=== PATIENT | female | born 1945 | race Caucasian/White ===

== ENCOUNTER 2016-10-21 19:40 | Emergency (ER) | payer OTHER ==
--- NOTE | 2016-10-21 22:39 | DIAGNOSTIC IMAGING REPORT ---
PROCEDURE: CT ABDOMEN/PELVIS W/O CONTRAST INDICATION: Left flank pain and hematuria. Status post cholecystectomy, hysterectomy, appendectomy. TECHNIQUE: Noncontrast axial images with sagittal and coronal reformations. COMPARISON: None. FINDINGS: ABDOMEN: There is a 4 mm nonobstructing calculus in the lower pole left kidney. Left and ureter are otherwise normal. There is a 1 mm nonobstructing calculus in the mid right kidney. No evidence of urinary tract obstruction. Cholecystectomy (surgical clips). Liver, spleen, and pancreas are normal. Bowel pattern is normal, including appendix. There are marked calcified atheromatous changes of the aorta and mesenteric vessels. There are moderate degenerate change of the lumbar spine. PELVIS: Moderate stool throughout the colon. Moderate sigmoid diverticulosis, but no evidence of diverticulitis. Status post hysterectomy. No evidence of free fluid. IMPRESSION: 1. There is a 4 mm nonobstructing calculus in the lower pole left kidney. 2. There is a 1 mm nonobstructing calculus in the right kidney. 3. No evidence of urinary tract obstruction. 4. Status post cholecystectomy, and hysterectomy. 5. Moderate sigmoid diverticulosis, but no evidence of diverticulitis. 6. Moderate stool throughout the colon. Consider obstipation. 7. Findings discussed with ROSAURA Espinal. All CT scans at this facility use dose modulation, iterative reconstruction, and/or weight-based dosing when appropriate to reduce radiation dose to as low as reasonably achievable.
--- NOTE | 2016-10-21 22:42 | ED CLINICAL REPORT ---
Clinical Report - Physicians/Mid Levels [facility] [address] [place] [address] 10/21/2016 19:41 Patient: VAN SAMANIEGO Arrived- By private vehicle. Historian- patient. HISTORY OF PRESENT ILLNESS Chief Complaint: FLANK PAIN. 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 It is described as "pain" and it is described as located in the left flank. No nausea, loss of appetite or vomiting. (patient presents with intermittent left flank pain over the last 10 days. Distant history of nephrolithiasis. Denies any nausea or vomiting. Denies sick contacts. Denies recent foreign travel. Denies trauma to the area. Denies history of diverticulitis. Denies urgency frequency. He denies any shortness of breath or chest pain.). REVIEW OF SYSTEMS No constipation, difficulty with urination, pain with urination, fever or chest pain. All systems otherwise negative, except as recorded above. PAST HISTORY Problems: Neurological Disease. Syncope. UTI - Urinary Tract Infection. Immunizations. LNMP - Last Normal Menstrual Period. Hypercholesterolemia. Insomnia. Multiple Sclerosis. Fall. Contusion. Abrasion(s). Head Injury. Diabetes Mellitus. Hypertension. Tetanus Status. Additional Surgeries: Cholecystectomy. Hysterectomy. Medications: MetFORMIN HCl Oral 500 mg, daily. Enablex Oral 7.5. Metoprolol Tartrate Oral 25 mg. AmLODIPine Besylate Oral 5 mg, daily. C45-Neywsw Oral 1000mcg, daily. Baclofen 10mg, BID . Calcium. Cranberry Oral. Losartan Potassium Oral 100 mg, daily. Simvastatin Oral (Tablet 10 mg) 1 tablet, at bedtime. Tecfidura 240 mg BID. Vitamin D3 Oral (Tablet 5000 unit), daily. Allergies: Niacin and Related. PCN. Sulfa Drugs. SOCIAL HISTORY Never smoker. ADDITIONAL NOTES The nursing notes have been reviewed. PHYSICAL EXAM Vital Signs: 10/21/2016 20:10 BP: 171/64. HR: 67. RR: 18. O2 saturation: 100%. Temp: 98.7 F. Pain level now: 7/10. Appearance: Alert. No acute distress. ENT: Ears normal. Neck: Normal inspection. CVS: Normal heart rate and rhythm. Heart sounds normal. Respiratory: No respiratory distress. Breath sounds normal. Chest nontender. No accessory muscle use. Abdomen: Soft and nontender. No abdominal tenderness, mass present or organomegaly. The bowel sounds are not abnormal. Back: Normal inspection. No CVA tenderness. Neuro: Oriented X 3. No motor deficit. LABS, X-RAYS, AND EKG Abdominal CT: IMPRESSION: 1. There is a 4 mm nonobstructing calculus in the lower pole left kidney. 2. There is a 1 mm nonobstructing calculus in the right kidney. 3. No evidence of urinary tract obstruction. 4. Status post cholecystectomy, and hysterectomy. 5. Moderate sigmoid diverticulosis, but no evidence of diverticulitis. 6. Moderate stool throughout the colon. Consider obstipation. 7. Findings discussed with ROSAURA Espinal. All CT scans at this facility use dose modulation, iterative reconstruction, and/or weight-based dosing when appropriate to reduce radiation dose to as low as reasonably achievable. Electronically Final signed by:Paul Braxton MD 10/21/2016 10:36:58 PM. Laboratory Tests: UA-Culture if indicated: (VIN: 10/21/2016 20:20) ( MsgRcvd 10/21/2016 20:33) Final results Test Result Flag Units (Reference) URINE COLOR YELLOW URINE APPEARANCE CLEAR URINE GLUCOSE NEGATIVE (NEGATIVE) URINE BILIRUBIN NEGATIVE (NEGATIVE) URINE KETONE NEGATIVE (NEGATIVE) URINE SPECIFIC GRAVITY 1.015 (1.010-1.030) URINE PH 6.0 (5.0-8.0) URINE PROTEIN TRACE (NEGATIVE) URINE UROBILINOGEN 0.2 EU/dL (0.2-1.0) URINE NITRITE NEGATIVE (NEGATIVE) URINE BLOOD TRACE-LYSED (NEGATIVE) URINE LEUK ESTERASE NEGATIVE (NEGATIVE) URINE RBC 1-3 rbc/hpf (0-1) URINE WBC 0-1 wbc/hpf (0-1) URINE EPITHELIAL CELLS 1-3 EPI/hpf (0-5) URINE BACTERIA TRACE (<1+) (NONE SEEN) URINE COMMENT CULT NOT INDICATED URINE CULTURES ARE SET-UP BASED ON THE FOLLOWING CRITERIA:POSITIVE NITRITEPOSITIVE LEUKOCYTE ESTERASEGREATER THAN 10 WHITE BLOOD CELLSMODERATE (2+) OR GREATER BACTERIA CBC w Diff: (VIN: 10/21/2016 20:45) ( MsgRcvd 10/21/2016 20:54) Final results Test Result Flag Units (Reference) WHITE BLOOD COUNT 9.6 K/uL (4.5-11.5) RED BLOOD COUNT 3.97 L M/uL (4.00-5.20) HEMOGLOBIN 12.3 gm/dL (12.0-16.0) HEMATOCRIT 36.4 % (36.0-46.0) MEAN CELL VOLUME 92 fL (80-100) MEAN CORPUSCULAR HGB 31 pg (26-34) MEAN CORPUSCULAR HGB CONC 34 g/dL (31-37) RED CELL DISTRIBUTION WIDTH 13.1 % (11.6-14.8) PLATELET COUNT 289 K/uL (150-400) NEUTROPHIL % 76.9 H % (50-75) LYMPH % 12.4 L % (25-40) MONO % 8.7 % (3-14) EOSINOPHIL % 1.8 % (0-4) BASOPHIL % 0.2 % (0-2) CMP: (VIN: 10/21/2016 20:45) ( MsgRcvd 10/21/2016 21:06) Final results Test Result Flag Units (Reference) GLUCOSE 126 H mg/dL (70-110) BUN 16 mg/dL (7-18) CREATININE 0.6 mg/dL (0.6-1.3) Estimated GFR >60 mL/min Estimated GFR- >60 mL/min Note: Persistent reduction over 3 months in eGFR<60 mL/min/1.73 m2 defines CKD. Patients with eGFR values>=60 mL/min/1.73 m2 may also have CKD if evidence ofpersistent proteinuria. Additional information may be foundat www.kidney.org. SODIUM 138 mmol/L (136-145) POTASSIUM 4.0 mmol/L (3.5-5.1) CHLORIDE 101 mmol/L (98-107) CARBON DIOXIDE 28 mmol/L (21-32) CALCIUM 9.7 mg/dL (8.5-10.1) TOTAL PROTEIN 7.6 g/dL (6.4-8.2) ALBUMIN 3.8 g/dL (3.3-5.0) BILIRUBIN, TOTAL 0.3 mg/dL (0.0-1.0) ALKALINE PHOSPHATASE 94 U/L (46-116) AST (SGOT) 16 U/L (15-37) ALT (SGPT) 29 U/L (12-78) Lipase: (VIN: 10/21/2016 20:45) ( MsgRcvd 10/21/2016 21:03) Final results Test Result Flag Units (Reference) LIPASE 142 U/L (73-393) . PROGRESS AND PROCEDURES Course of Care: During the time in the ED, the following DDX were considered: acute surgical abdomen, hemodynamic or metabolic instability, dehydration, gastroenteritis-viral, food borne, or bacterial, food intolerance, irritable or inflammatory bowel, infection, sepsis. patient is largely pain-free in the ER. No distress, afebrile. No signs of infectious process. Patient with signs of small nephrolithiasis, nonobstructing, with no acute complications. He did call for neurology outpatient. 10/21/2016 20:10 BP: 171/64. HR: 67. RR: 18. O2 saturation: 100%. Temp: 98.7 F. Pain level now: 7/10. Patient is stable. Symptoms better. Patient/family counseled. Disposition: Discharged. CLINICAL IMPRESSION Left nephrolithiasis with renal colic. Diabetes. Hypertension. INSTRUCTIONS Drink plenty of fluids. (Urology: [phone]). Prescription Medications: Hydrocodone/APAP 5mg / 325mg: take 1 orally every 6 hours as needed for pain. Dispense twelve (12). No refill. Follow-up: Follow up with your doctor in three days. (Electronically signed by Yamilet Biswas P.A.-C 10/21/2016 22:52)
--- NOTE | 2016-10-21 22:42 | ED CLINICAL REPORT ---
Clinical Report - Physicians/Mid Levels [facility] [address] [place] [address] 10/21/2016 19:41 Patient: VAN SAMANIEGO Arrived- By private vehicle. Historian- patient. HISTORY OF PRESENT ILLNESS Chief Complaint: FLANK PAIN. 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 It is described as "pain" and it is described as located in the left flank. No nausea, loss of appetite or vomiting. (patient presents with intermittent left flank pain over the last 10 days. Distant history of nephrolithiasis. Denies any nausea or vomiting. Denies sick contacts. Denies recent foreign travel. Denies trauma to the area. Denies history of diverticulitis. Denies urgency frequency. He denies any shortness of breath or chest pain.). REVIEW OF SYSTEMS No constipation, difficulty with urination, pain with urination, fever or chest pain. All systems otherwise negative, except as recorded above. PAST HISTORY Problems: Neurological Disease. Syncope. UTI - Urinary Tract Infection. Immunizations. LNMP - Last Normal Menstrual Period. Hypercholesterolemia. Insomnia. Multiple Sclerosis. Fall. Contusion. Abrasion(s). Head Injury. Diabetes Mellitus. Hypertension. Tetanus Status. Additional Surgeries: Cholecystectomy. Hysterectomy. Medications: MetFORMIN HCl Oral 500 mg, daily. Enablex Oral 7.5. Metoprolol Tartrate Oral 25 mg. AmLODIPine Besylate Oral 5 mg, daily. K22-Hheiap Oral 1000mcg, daily. Baclofen 10mg, BID . Calcium. Cranberry Oral. Losartan Potassium Oral 100 mg, daily. Simvastatin Oral (Tablet 10 mg) 1 tablet, at bedtime. Tecfidura 240 mg BID. Vitamin D3 Oral (Tablet 5000 unit), daily. Allergies: Niacin and Related. PCN. Sulfa Drugs. SOCIAL HISTORY Never smoker. ADDITIONAL NOTES The nursing notes have been reviewed. PHYSICAL EXAM Vital Signs: 10/21/2016 20:10 BP: 171/64. HR: 67. RR: 18. O2 saturation: 100%. Temp: 98.7 F. Pain level now: 7/10. Appearance: Alert. No acute distress. ENT: Ears normal. Neck: Normal inspection. CVS: Normal heart rate and rhythm. Heart sounds normal. Respiratory: No respiratory distress. Breath sounds normal. Chest nontender. No accessory muscle use. Abdomen: Soft and nontender. No abdominal tenderness, mass present or organomegaly. The bowel sounds are not abnormal. Back: Normal inspection. No CVA tenderness. Neuro: Oriented X 3. No motor deficit. LABS, X-RAYS, AND EKG Abdominal CT: IMPRESSION: 1. There is a 4 mm nonobstructing calculus in the lower pole left kidney. 2. There is a 1 mm nonobstructing calculus in the right kidney. 3. No evidence of urinary tract obstruction. 4. Status post cholecystectomy, and hysterectomy. 5. Moderate sigmoid diverticulosis, but no evidence of diverticulitis. 6. Moderate stool throughout the colon. Consider obstipation. 7. Findings discussed with ROSAURA Espinal. All CT scans at this facility use dose modulation, iterative reconstruction, and/or weight-based dosing when appropriate to reduce radiation dose to as low as reasonably achievable. Electronically Final signed by:Paul Braxton MD 10/21/2016 10:36:58 PM. Laboratory Tests: UA-Culture if indicated: (VIN: 10/21/2016 20:20) ( MsgRcvd 10/21/2016 20:33) Final results Test Result Flag Units (Reference) URINE COLOR YELLOW URINE APPEARANCE CLEAR URINE GLUCOSE NEGATIVE (NEGATIVE) URINE BILIRUBIN NEGATIVE (NEGATIVE) URINE KETONE NEGATIVE (NEGATIVE) URINE SPECIFIC GRAVITY 1.015 (1.010-1.030) URINE PH 6.0 (5.0-8.0) URINE PROTEIN TRACE (NEGATIVE) URINE UROBILINOGEN 0.2 EU/dL (0.2-1.0) URINE NITRITE NEGATIVE (NEGATIVE) URINE BLOOD TRACE-LYSED (NEGATIVE) URINE LEUK ESTERASE NEGATIVE (NEGATIVE) URINE RBC 1-3 rbc/hpf (0-1) URINE WBC 0-1 wbc/hpf (0-1) URINE EPITHELIAL CELLS 1-3 EPI/hpf (0-5) URINE BACTERIA TRACE (<1+) (NONE SEEN) URINE COMMENT CULT NOT INDICATED URINE CULTURES ARE SET-UP BASED ON THE FOLLOWING CRITERIA:POSITIVE NITRITEPOSITIVE LEUKOCYTE ESTERASEGREATER THAN 10 WHITE BLOOD CELLSMODERATE (2+) OR GREATER BACTERIA CBC w Diff: (VIN: 10/21/2016 20:45) ( MsgRcvd 10/21/2016 20:54) Final results Test Result Flag Units (Reference) WHITE BLOOD COUNT 9.6 K/uL (4.5-11.5) RED BLOOD COUNT 3.97 L M/uL (4.00-5.20) HEMOGLOBIN 12.3 gm/dL (12.0-16.0) HEMATOCRIT 36.4 % (36.0-46.0) MEAN CELL VOLUME 92 fL (80-100) MEAN CORPUSCULAR HGB 31 pg (26-34) MEAN CORPUSCULAR HGB CONC 34 g/dL (31-37) RED CELL DISTRIBUTION WIDTH 13.1 % (11.6-14.8) PLATELET COUNT 289 K/uL (150-400) NEUTROPHIL % 76.9 H % (50-75) LYMPH % 12.4 L % (25-40) MONO % 8.7 % (3-14) EOSINOPHIL % 1.8 % (0-4) BASOPHIL % 0.2 % (0-2) CMP: (VIN: 10/21/2016 20:45) ( MsgRcvd 10/21/2016 21:06) Final results Test Result Flag Units (Reference) GLUCOSE 126 H mg/dL (70-110) BUN 16 mg/dL (7-18) CREATININE 0.6 mg/dL (0.6-1.3) Estimated GFR >60 mL/min Estimated GFR- >60 mL/min Note: Persistent reduction over 3 months in eGFR<60 mL/min/1.73 m2 defines CKD. Patients with eGFR values>=60 mL/min/1.73 m2 may also have CKD if evidence ofpersistent proteinuria. Additional information may be foundat [email or web address].org. SODIUM 138 mmol/L (136-145) POTASSIUM 4.0 mmol/L (3.5-5.1) CHLORIDE 101 mmol/L (98-107) CARBON DIOXIDE 28 mmol/L (21-32) CALCIUM 9.7 mg/dL (8.5-10.1) TOTAL PROTEIN 7.6 g/dL (6.4-8.2) ALBUMIN 3.8 g/dL (3.3-5.0) BILIRUBIN, TOTAL 0.3 mg/dL (0.0-1.0) ALKALINE PHOSPHATASE 94 U/L (46-116) AST (SGOT) 16 U/L (15-37) ALT (SGPT) 29 U/L (12-78) Lipase: (VIN: 10/21/2016 20:45) ( MsgRcvd 10/21/2016 21:03) Final results Test Result Flag Units (Reference) LIPASE 142 U/L (73-393) . PROGRESS AND PROCEDURES Course of Care: During the time in the ED, the following DDX were considered: acute surgical abdomen, hemodynamic or metabolic instability, dehydration, gastroenteritis-viral, food borne, or bacterial, food intolerance, irritable or inflammatory bowel, infection, sepsis. patient is largely pain-free in the ER. No distress, afebrile. No signs of infectious process. Patient with signs of small nephrolithiasis, nonobstructing, with no acute complications. He did call for neurology outpatient. 10/21/2016 20:10 BP: 171/64. HR: 67. RR: 18. O2 saturation: 100%. Temp: 98.7 F. Pain level now: 7/10. Patient is stable. Symptoms better. Patient/family counseled. Disposition: Discharged. CLINICAL IMPRESSION Left nephrolithiasis with renal colic. Diabetes. Hypertension. INSTRUCTIONS Drink plenty of fluids. (Urology: [phone]). Prescription Medications: Hydrocodone/APAP 5mg / 325mg: take 1 orally every 6 hours as needed for pain. Dispense twelve (12). No refill. Follow-up: Follow up with your doctor in three days. (Electronically signed by Yamilet Biswas P.A.-C 10/21/2016 22:52)
--- NOTE | 2016-10-21 22:42 | ED ORDER SUMMARY ---
..... Patient: VAN SAMANIEGO [facility]Sheet [facility] VisitID: [id number] [address] [place] [address] 70y, F Registration Date/Time: 10/21/2016 ORDER SHEET Weight: 72.5 kg (stated) Allergies: Niacin and Related, PCN, Sulfa Drugs GENERAL ORDERS: UA-Culture if indicated Urgent (20:18 10/21/2016 MWinterer R.N. per protocol) (Ack 20:19 CHagerty ER Film Examiner) (20:21 MWinterer R.N.) CBC w Diff Urgent (20:36 10/21/2016 EKoroleva P.A.-C) (Ack 20:46 CHagerty ER Film Examiner) (20:47 MWinterer R.N.) CMP Urgent (20:36 10/21/2016 EKoroleva P.A.-C) (Ack 20:46 CHagerty ER Film Examiner) (20:47 MWinterer R.N.) UA-Culture if indicated Urgent (20:36 10/21/2016 EKoroleva P.A.-C) (Cancelled: Duplicate Order20:45 CHagerty ER Film Examiner) Lipase Urgent (20:36 10/21/2016 EKoroleva P.A.-C) (Ack 20:46 CHagerty ER Film Examiner) (20:47 MWinterer R.N.) CT Abd/Pel wo Cont Urgent (21:14 10/21/2016 EKoroleva P.A.-C) (Ack 21:15 CHagerty ER Film Examiner) (21:53 MCampbell) Vitals (22:46 10/21/2016 EKoroleva P.A.-C) (22:53 SRedmond) MEDICATION ORDERS: IV FLUIDS: IV Saline Lock (20:36 10/21/2016 EKoroleva P.A.-C) (Ack 20:36 MWinterer R.N.) (20:48 MWinterer R.N.) Toradol IV 30 mg (NOW) (21:13 10/21/2016 EKoroleva P.A.-C) (Ack 21:17 MWinterer R.N.) (21:22 MWinterer R.N.) ORDER SHEET NOTES: [Electronically signed by Yamilet Biswas P.A.-C (22:52 10/21/2016)] [Electronically signed by Lilli Rondon R.N. (23:03 10/21/2016)] [Electronically locked/signed by Lilli Rondon R.N. (23:03 10/21/2016)]
--- NOTE | 2016-10-21 22:42 | ED NURSING NOTES ---
Clinical Report - Nurses [facility] [address] [place] [address] 10/21/2016 19:41 Patient: VAN SAMANIEGO TRIAGE Acuity: LEVEL 3. Chief Complaint: (left flank and LLQ pain). Alert. No acute distress. LUIS COMA SCORE: Luis Coma Scale: 15- eyes open spontaneously (4); best verbal response- oriented x 4 (5); best motor response- obeys commands (6). --20:16 Andressa Sanderson R.N. 20:10 10/21/16. BP: 171/64. HR: 67. RR: 18. O2 saturation: 100% on room air. Temp: 98.7 F (oral). Pain level now: 02/09. --20:16 Andressa Sanderson R.N. Weight: 72.5 kg stated. Height/Length: 64 inches Per Patient. BMI: 27.5. --20:15 Andressa Sanderson R.N. Medications AmLODIPine Besylate Oral 5 mg, daily. W37-Umlxlb Oral 1000mcg, daily. Baclofen 10mg, BID . Calcium. Cranberry Oral. Losartan Potassium Oral 100 mg, daily. Simvastatin Oral (Tablet 10 mg) 1 tablet, at bedtime. Tecfidura 240 mg BID. Vitamin D3 Oral (Tablet 5000 unit), daily. --20:13 Andressa Sanderson R.N. Metoprolol Tartrate Oral 25 mg. --20:13 Andressa Sanderson R.N. Enablex Oral 7.5. --20:13 Andressa Sanderson R.N. MetFORMIN HCl Oral 500 mg, daily. --20:13 Andressa Sanderson R.N. Medication/allergy information source: the patient. --20:16 Andressa Sanderson R.N. Allergies Niacin and Related. PCN. Sulfa Drugs. --20:13 Andressa Sanderson R.N. History Arrived by private vehicle. Historian: patient. Accompanied by friend. Primary physician (Ada). This is a new problem. (10 days ago). Relates the location as in the left flank area. No history of recent trauma. Treatment BASE ENGINEER: None. PAST MEDICAL HX: The patient has had a hysterectomy. SOCIAL HX: Never smoker. No alcohol use or drug use. NUTRITIONAL RISK ASSESSMENT: The nutritional risk assessment revealed no deficiencies. FUNCTIONAL ASSESSMENT: Functional assessment: no impairments noted. LEARNING NEEDS ASSESSMENT: The learning needs assessment revealed no barriers. FALL RISK ASSESSMENT: Fall risk assessment completed. Risk factors identified include patient age greater than 65 years and impairment of mobility and sight. Fall interventions initiated. Side rails up x1. Brakes on Bed in low position. Call light in reach of patient. SKIN INTEGRITY ASSESSMENT: Skin integrity risk assessment completed. No skin integrity risk identified. --20:16 Andressa Sanderson R.N. PROBLEMS: Neurological Disease. Syncope. UTI - Urinary Tract Infection. Immunizations. Hypercholesterolemia. Insomnia. Multiple Sclerosis. Fall. Contusion. Abrasion(s). Head Injury. Diabetes Mellitus. Hypertension. Tetanus Status. --20: Andressa Sanderson R.N. ADDITIONAL SURGERIES: Cholecystectomy. Hysterectomy. --20:06 Andressa Sanderson R.N. Assessment GENERAL / NEURO / PSYCH: Alert. Oriented X 4. Appears in no acute distress. Patient appears calm and cooperative. RESPIRATORY: Respirations not labored. CVS: Capillary refill less than 2 seconds. GI / : Abdomen soft and nontender. SKIN: Mucous membranes are pink. Skin is warm and dry. --20:16 Andressa Sanderson R.N. Interventions ID band on patient. To treatment room. Ambulatory. --20:16 Andressa Sanderson R.N. PHYSICAL ASSESSMENT 20:10/21/16. Ambulatory to room. GENERAL / NEURO / PSYCH: Alert. Oriented X 4. Appears in no acute distress. RESPIRATORY: Respirations not labored. CVS: Capillary refill less than 2 seconds. GI / : Abdomen soft and nontender. EXTREMITIES: Sensation intact in extremities. ROM of extremities within normal limits. BACK: Normal inspection of the neck and back. --20:07 Andressa Sanderson R.N. NURSING PROGRESS NOTES 20:07 10/21/16. Patient gowned. Two patient identifiers checked. Call light placed in reach. Side rails up x 1. Bed placed in lowest position. Brakes of bed on. Patient ready for evaluation- chart flagged and ED physician and PA notified. --20:07 Andressa Sanderson R.N. 20:19 10/21/16. Checked patient name and birthdate: patient confirmed. Instructions provided to collect clean catch urine and patient verbalized understanding. Clean catch urine collected with return of yellow-colored clear urine; sample sent to lab. Specimen labeled in the presence of the patient. --20:19 Andressa Sanderson R.N. 20:47 10/21/2016 Site #1 started via IV in the right antecubital space with an 20g angiocath, with aseptic technique and good blood return; one attempt. Blood drawn: rainbow set. Labeled in the presence of the patient and sent to the lab. Saline lock flushed with 10 mL saline. --20:47 Andressa Sanderson R.N. 21:22 10/21/2016 Toradol IVP 30 mg given over 1 minute(s) via site #1. Allergies verified and confirmed 5 rights. IV patency established. IV site checked: no pain, redness, or swelling. IV flushed thoroughly pre- and post-medication administration. IVP given by RN. --21: Andressa Sanderson R.N. 22:17 10/21/16. Care transferred and report given (Lilli ED RN). --22:17 Andressa Sanderson R.N. 22:58 10/21/16. BP: 172/46 (regular adult cuff) taken on the right arm, via an automated monitor, while sitting. PA notified. HR: 67. RR: 14. O2 saturation: 97% on room air. Temp: 97.7 F. --23:00 Shad Garza. DISPOSITION / DISCHARGE 23:02 10/21/2016 Site #1 removed upon discharge. Catheter intact. Bandage applied. --23:02 Francis Rivas Departure time: 23:03. Condition at departure: improved. No learning barriers present. Discharge instructions provided and reviewed with the patient. Reviewed warnings. Reviewed medication(s) side effects, precautions, dosing and course information. Prescription(s) given to the patient. Treatments reviewed. Reviewed referrals. Follow up contact number. Patient verbalized understanding. Written instructions provided in Greek. No diet instructions, activity restrictions, note given or stop smoking instructions. The patient was discharged by the physician assistant operations manager. She was discharged home and accompanied by spouse. She left the Emergency Department ambulatory and via private vehicle. Family member driving. FALL RISK ASSESSMENT: Fall risk assessment completed. No fall risk identified. --23:03 Francis Rivas 23:01 10/21/16. BP: deferred. HR: deferred. RR: deferred. O2 saturation: deferred. Temp: deferred. Pain level now: 0/10. --23:03 Francis Rivas Locked/Released at 10/21/2016 23:03 by Francis Rivas
--- NOTE | 2016-10-21 22:42 | ED NURSING NOTES ---
Clinical Report - Nurses [facility] [address] [place] [address] 10/21/2016 19:41 Patient: VAN SAMANIEGO TRIAGE Acuity: LEVEL 3. Chief Complaint: (left flank and LLQ pain). Alert. No acute distress. LUIS COMA SCORE: Luis Coma Scale: 15- eyes open spontaneously (4); best verbal response- oriented x 4 (5); best motor response- obeys commands (6). --20:16 Andressa Sanderson R.N. 20:10 10/21/16. BP: 171/64. HR: 67. RR: 18. O2 saturation: 100% on room air. Temp: 98.7 F (oral). Pain level now: 02/09. --20:16 Andressa Sanderson R.N. Weight: 72.5 kg stated. Height/Length: 64 inches Per Patient. BMI: 27.5. --20:15 Andressa Sanderson R.N. Medications AmLODIPine Besylate Oral 5 mg, daily. Q17-[id number] Oral 1000mcg, daily. Baclofen 10mg, BID . Calcium. Cranberry Oral. Losartan Potassium Oral 100 mg, daily. Simvastatin Oral (Tablet 10 mg) 1 tablet, at bedtime. Tecfidura 240 mg BID. Vitamin D3 Oral (Tablet 5000 unit), daily. --20:13 Andressa Sanderson R.N. Metoprolol Tartrate Oral 25 mg. --20:13 Andressa Sanderson R.N. Enablex Oral 7.5. --20:13 Andressa Sanderson R.N. MetFORMIN HCl Oral 500 mg, daily. --20:13 Andressa Sanderson R.N. Medication/allergy information source: the patient. --20:16 Andressa Sanderson R.N. Allergies Niacin and Related. PCN. Sulfa Drugs. --20:13 Andressa Sanderson R.N. History Arrived by private vehicle. Historian: patient. Accompanied by friend. Primary physician (Ada). This is a new problem. (10 days ago). Relates the location as in the left flank area. No history of recent trauma. Treatment CERTIFIED NURSING ASSISTANT: None. PAST MEDICAL HX: The patient has had a hysterectomy. SOCIAL HX: Never smoker. No alcohol use or drug use. NUTRITIONAL RISK ASSESSMENT: The nutritional risk assessment revealed no deficiencies. FUNCTIONAL ASSESSMENT: Functional assessment: no impairments noted. LEARNING NEEDS ASSESSMENT: The learning needs assessment revealed no barriers. FALL RISK ASSESSMENT: Fall risk assessment completed. Risk factors identified include patient age greater than 65 years and impairment of mobility and sight. Fall interventions initiated. Side rails up x1. Brakes on Bed in low position. Call light in reach of patient. SKIN INTEGRITY ASSESSMENT: Skin integrity risk assessment completed. No skin integrity risk identified. --20:16 Andressa Sanderson R.N. PROBLEMS: Neurological Disease. Syncope. UTI - Urinary Tract Infection. Immunizations. Hypercholesterolemia. Insomnia. Multiple Sclerosis. Fall. Contusion. Abrasion(s). Head Injury. Diabetes Mellitus. Hypertension. Tetanus Status. --20: Andressa Sanderson R.N. ADDITIONAL SURGERIES: Cholecystectomy. Hysterectomy. --20:06 Andressa Sanderson R.N. Assessment GENERAL / NEURO / PSYCH: Alert. Oriented X 4. Appears in no acute distress. Patient appears calm and cooperative. RESPIRATORY: Respirations not labored. CVS: Capillary refill less than 2 seconds. GI / : Abdomen soft and nontender. SKIN: Mucous membranes are pink. Skin is warm and dry. --20:16 Andressa Sanderson R.N. Interventions ID band on patient. To treatment room. Ambulatory. --20:16 Andressa Sanderson R.N. PHYSICAL ASSESSMENT 20:10/21/16. Ambulatory to room. GENERAL / NEURO / PSYCH: Alert. Oriented X 4. Appears in no acute distress. RESPIRATORY: Respirations not labored. CVS: Capillary refill less than 2 seconds. GI / : Abdomen soft and nontender. EXTREMITIES: Sensation intact in extremities. ROM of extremities within normal limits. BACK: Normal inspection of the neck and back. --20:07 Andressa Sanderson R.N. NURSING PROGRESS NOTES 20:07 10/21/16. Patient gowned. Two patient identifiers checked. Call light placed in reach. Side rails up x 1. Bed placed in lowest position. Brakes of bed on. Patient ready for evaluation- chart flagged and ED physician and PA notified. --20:07 Andressa Sanderson R.N. 20:19 10/21/16. Checked patient name and birthdate: patient confirmed. Instructions provided to collect clean catch urine and patient verbalized understanding. Clean catch urine collected with return of yellow-colored clear urine; sample sent to lab. Specimen labeled in the presence of the patient. --20:19 Andressa Sanderson R.N. 20:47 10/21/2016 Site #1 started via IV in the right antecubital space with an 20g angiocath, with aseptic technique and good blood return; one attempt. Blood drawn: rainbow set. Labeled in the presence of the patient and sent to the lab. Saline lock flushed with 10 mL saline. --20:47 Andressa Sanderson R.N. 21:22 10/21/2016 Toradol IVP 30 mg given over 1 minute(s) via site #1. Allergies verified and confirmed 5 rights. IV patency established. IV site checked: no pain, redness, or swelling. IV flushed thoroughly pre- and post-medication administration. IVP given by RN. --21: Andressa Sanderson R.N. 22:17 10/21/16. Care transferred and report given (Lilli ED RN). --22:17 Andressa Sanderson R.N. 22:58 10/21/16. BP: 172/46 (regular adult cuff) taken on the right arm, via an automated monitor, while sitting. PA notified. HR: 67. RR: 14. O2 saturation: 97% on room air. Temp: 97.7 F. --23:00 Shad Garza. DISPOSITION / DISCHARGE 23:02 10/21/2016 Site #1 removed upon discharge. Catheter intact. Bandage applied. --23:02 Francis Rivas Departure time: 23:03. Condition at departure: improved. No learning barriers present. Discharge instructions provided and reviewed with the patient. Reviewed warnings. Reviewed medication(s) side effects, precautions, dosing and course information. Prescription(s) given to the patient. Treatments reviewed. Reviewed referrals. Follow up contact number. Patient verbalized understanding. Written instructions provided in French. No diet instructions, activity restrictions, note given or stop smoking instructions. The patient was discharged by the physician speech language pathology assistant. She was discharged home and accompanied by spouse. She left the Emergency Department ambulatory and via private vehicle. Family member driving. FALL RISK ASSESSMENT: Fall risk assessment completed. No fall risk identified. --23:03 Francis Rivas 23:01 10/21/16. BP: deferred. HR: deferred. RR: deferred. O2 saturation: deferred. Temp: deferred. Pain level now: 0/10. --23:03 Francis Rivas Locked/Released at 10/21/2016 23:03 by Francis Rivas
--- NOTE | 2016-10-21 22:42 | ED ORDER SUMMARY ---
..... Patient: VAN SAMANIEGO OrderSheet [facility] VisitID: [id number] [address] [place] [address] 70y, F Registration Date/Time: 10/21/2016 ORDER SHEET Weight: 72.5 kg (stated) Allergies: Niacin and Related, PCN, Sulfa Drugs GENERAL ORDERS: UA-Culture if indicated Urgent (20:18 10/21/2016 MWinterer R.N. per protocol) (Ack 20:19 CHagerty [facility] Entry Level Truck Driver) (20:21 MWinterer R.N.) CBC w Diff Urgent (20:36 10/21/2016 EKoroleva P.A.-C) (Ack 20:46 CH[facility]ty [facility] Entry Level Truck Driver) (20:47 MWinterer R.N.) CMP Urgent (20:36 10/21/2016 EKoroleva P.A.-C) (Ack 20:46 [facility] Entry Level Truck Driver) (20:47 MWinterer R.N.) UA-Culture if indicated Urgent (20:36 10/21/2016 EKoroleva P.A.-C) (Cancelled: Duplicate Order20:45 CH[facility] Entry Level Truck Driver) Lipase Urgent (20:36 10/21/2016 EKoroleva P.A.-C) (Ack 20:46 [facility] Entry Level Truck Driver) (20:47 MWinterer R.N.) CT Abd/Pel wo Cont Urgent (21:14 10/21/2016 EKoroleva P.A.-C) (Ack 21:15 CHagerty ER Entry Level Truck Driver) (21:53 MCampbell) Vitals (22:46 10/21/2016 EKoroleva P.A.-C) (22:53 SRedmond) MEDICATION ORDERS: IV FLUIDS: IV Saline Lock (20:36 10/21/2016 EKoroleva P.A.-C) (Ack 20:36 MWinterer R.N.) (20:48 MWinterer R.N.) Toradol IV 30 mg (NOW) (21:13 10/21/2016 EKoroleva P.A.-C) (Ack 21:17 MWinterer R.N.) (21:22 MWinterer R.N.) ORDER SHEET NOTES: [Electronically signed by Yamilet Biswas P.A.-C (22:52 10/21/2016)] [Electronically signed by Lilli Rondon R.N. (23:03 10/21/2016)] [Electronically locked/signed by Lilli Rondon R.N. (23:03 10/21/2016)]
--- NOTE | 2016-10-21 23:03 | ED MAR SUMMARY ---
..... Medication Administration Record [facility] [address] [place] [address] Patient: VAN SAMANIEGO Visit ID: [id number] 70y, F Weight: 72.5 kg Height/Length: 64 in BMI: 27.5 ALLERGIES: Niacin and Related, PCN, Sulfa Drugs Given 21:22 10/21/2016 Andressa Sanderson R.N. Medication Administered: TORADOL [IVP], Dose: 30 mg IVP over 1 minute(s), Site: #1 right AC. Medication Ordered: Toradol IV 30 mg (NOW).
--- NOTE | 2016-10-21 23:03 | ED MED RECONCILIATION SUMMARY ---
Patient: VAN SAMANIEGO Medication Reconciliation Report [facility] VisitID: [id number] [address] [place] [address] 70y, F Registration Date/Time: 10/21/2016 Weight: 72.5 kg Height/Length: 64 in. BMI: 27.5 ALLERGIES: Niacin and Related, PCN, Sulfa Drugs The patient's Home Medications are listed below: THE FOLLOWING MEDICATIONS NEED TO BE RECONCILED: AmLODIPine Besylate Oral 5 mg, daily [id number] Oral 1000mcg, daily Baclofen 10mg, BID Calcium Cranberry Oral Enablex Oral 7.5 Losartan Potassium Oral 100 mg, daily MetFORMIN HCl Oral 500 mg, daily Metoprolol Tartrate Oral 25 mg Simvastatin Oral (10 mg) 1 tablet, at bedtime Tecfidura 240 mg BID Vitamin D3 Oral (5000 unit), daily The source(s) of the original Home Medication information: patient The following Medications were given to the patient in the Emergency Department: Toradol [IVP] IVP 30 mg, administered: 10/21/2016 9:22:00 PM The following Medications were prescribed to the patient: Hydrocodone/APAP 5mg / 325mg: take 1 orally every 6 hours as needed for pain. Dispense twelve (12). No refill. -- Yamilet Biswas P.A.-C
--- NOTE | 2016-10-21 23:03 | ED MED RECONCILIATION SUMMARY ---
Patient: VAN SAMANIEGO Medication Reconciliation Report [facility] VisitID: [id number] [address] [place] [address] 70y, F Registration Date/Time: 10/21/2016 Weight: 72.5 kg Height/Length: 64 in. BMI: 27.5 ALLERGIES: Niacin and Related, PCN, Sulfa Drugs The patient's Home Medications are listed below: THE FOLLOWING MEDICATIONS NEED TO BE RECONCILED: AmLODIPine Besylate Oral 5 mg, daily [id number] Oral 1000mcg, daily Baclofen 10mg, BID Calcium Cranberry Oral Enablex Oral 7.5 Losartan Potassium Oral 100 mg, daily MetFORMIN HCl Oral 500 mg, daily Metoprolol Tartrate Oral 25 mg Simvastatin Oral (10 mg) 1 tablet, at bedtime Tecfidura 240 mg BID Vitamin D3 Oral (5000 unit), daily The source(s) of the original Home Medication information: patient The following Medications were given to the patient in the Emergency Department: Toradol [IVP] IVP 30 mg, administered: 10/21/2016 9:22:00 PM The following Medications were prescribed to the patient: Hydrocodone/APAP 5mg / 325mg: take 1 orally every 6 hours as needed for pain. Dispense twelve (12). No refill. -- Yamilet Biswas P.A.-C
--- NOTE | 2016-10-21 23:03 | ED MAR SUMMARY ---
..... Medication Administration Record [facility] [address] [place] [address] Patient: VAN SAMANIEGO Visit ID: [id number] 70y, F Weight: 72.5 kg Height/Length: 64 in BMI: 27.5 ALLERGIES: Niacin and Related, PCN, Sulfa Drugs Given 21:22 10/21/2016 Andressa Sanderson R.N. Medication Administered: TORADOL [IVP], Dose: 30 mg IVP over 1 minute(s), Site: #1 right AC. Medication Ordered: Toradol IV 30 mg (NOW).
--- NOTE | 2016-10-21 23:03 | ED DISCHARGE INSTRUCTIONS ---
Patient: VAN SAMANIEGO General Instructions [facility] VisitID: [id number] [address] [place] [address] 70y, F Registration Date/Time: 10/21/2016 Left nephrolithiasis with renal colic. Diabetes. Hypertension. INSTRUCTIONS Drink plenty of fluids. (Urology: [phone]). Prescription Medications: Hydrocodone/APAP 5mg / 325mg: take 1 orally every 6 hours as needed for pain. Dispense twelve (12). No refill. Follow-up: Follow up with your doctor in three days. ADDITIONAL INFORMATION Kidney Stone (W/ Colic) The sharp cramping pain and nausea/vomiting that you have is due to a small stone which has formed in the kidney and is now passing down a narrow tube (ureter) on its way to your bladder. Once it reaches your bladder, the pain will stop. The stone may pass in your urine stream in one piece. [The size may be 1/16" to 1/4" (1-6mm)]. Or, the stone may also break up into christianne fragments which you may not even notice. Once you have had a kidney stone, you are at risk for developing another one in the future. Home Care: Drink plenty of fluids (at least 8 to 10 glasses of water a day). Most stones will pass on their own, but may take from a few hours to a few days. Sometimes the stone is too large to pass by itself and special methods will have to be used to remove the stone. Each time you urinate, do so in a jar. Pour the urine from the jar through the strainer and into the toilet. Continue doing this until 24 hours after your pain stops. By then, if there was a kidney stone, it should pass from your bladder. Some stones dissolve into sand-like particles and pass right through the strainer. In that case, you wont ever see a stone. Save any stone that you find in the strainer and bring it to your doctor for analysis. It may be possible to prevent certain types of stones from forming. Therefore, it is important to know what kind of stone you have. Try to stay as active as possible since this will help the stone pass. Do not stay in bed unless your pain prevents you from getting up. You may notice a red, pink or brown color to your urine. This is normal while passing a kidney stone. Follow Up with your doctor or return to this facility if the pain lasts more than 48 hours. Get Prompt Medical Attention if any of the following occur: Pain that is not controlled by the medicine given Repeated vomiting or unable to keep down fluids Weakness, dizziness or fainting Fever of 100.4F (38C) or higher, or as directed by your healthcare provider Passage of solid red or brown urine (can't see through it) or urine with lots of blood clots Unable to pass urine for 8 hours and increasing bladder pressure Hydrocodone Bitartrate, Acetaminophen Oral tablet What is this medicine? ACETAMINOPHEN; HYDROCODONE (a set a RYLAN rachel fen; christina droe KOE done) is a pain reliever. It is used to treat mild to moderate pain. How should I use this medicine? Take this medicine by mouth. Swallow it with a full glass of water. Follow the directions on the prescription label. If the medicine upsets your stomach, take the medicine with food or milk. Do not take more than you are told to take. Talk to your oracle developer regarding the use of this medicine in children. This medicine is not approved for use in children. What side effects may I notice from receiving this medicine? Side effects that you should report to your doctor or health residential child care counselor as soon as possible: allergic reactions like skin rash, itching or hives, swelling of the face, lips, or tongue breathing problems confusion feeling faint or lightheaded, falls stomach pain yellowing of the eyes or skin Side effects that usually do not require medical attention (report to your doctor or health residential child care counselor if they continue or are bothersome): nausea, vomiting stomach upset What may interact with this medicine? alcohol antihistamines isoniazid medicines for depression, anxiety, or psychotic disturbances medicines for sleep muscle relaxants naltrexone narcotic medicines (opiates) for pain phenobarbital ritonavir tramadol What if I miss a dose? If you miss a dose, take it as soon as you can. If it is almost time for your next dose, take only that dose. Do not take double or extra doses. Where should I keep my medicine? Keep out of the reach of children. This medicine can be abused. Keep your medicine in a safe place to protect it from theft. Do not share this medicine with anyone. Selling or giving away this medicine is dangerous and against the law. Store at room temperature between 15 and 30 degrees C (59 and 86 degrees F). Protect from light. Keep container tightly closed. Throw away any unused medicine after the expiration date. Discard unused medicine and used packaging carefully. Pets and children can be harmed if they find used or lost packages. What should I tell my health care provider before I take this medicine? They need to know if you have any of these conditions: brain tumor Crohn's disease, inflammatory bowel disease, or ulcerative colitis drink more than 3 alcohol-containing drinks per day drug abuse or addiction head injury heart or circulation problems kidney disease or problems going to the bathroom liver disease lung disease, asthma, or breathing problems an unusual or allergic reaction to acetaminophen, hydrocodone, other opioid analgesics, other medicines, foods, dyes, or preservatives or trying to get breast-feeding What should I watch for while using this medicine? Tell your doctor or health residential child care counselor if your pain does not go away, if it gets worse, or if you have new or a different type of pain. You may develop tolerance to the medicine. Tolerance means that you will need a higher dose of the medicine for pain relief. Tolerance is normal and is expected if you take the medicine for a long time. Do not suddenly stop taking your medicine because you may develop a severe reaction. Your body becomes used to the medicine. This does NOT mean you are addicted. Addiction is a behavior related to getting and using a drug for a non-medical reason. If you have pain, you have a medical reason to take pain medicine. Your doctor will tell you how much medicine to take. If your doctor wants you to stop the medicine, the dose will be slowly lowered over time to avoid any side effects. You may get drowsy or dizzy when you first start taking the medicine or change doses. Do not drive, use machinery, or do anything that may be dangerous until you know how the medicine affects you. Stand or sit up slowly. There are different types of narcotic medicines (opiates) for pain. If you take more than one type at the same time, you may have more side effects. Give your health care provider a list of all medicines you use. Your doctor will tell you how much medicine to take. Do not take more medicine than directed. Call emergency for help if you have problems breathing. The medicine will cause constipation. Try to have a bowel movement at least every 2 to 3 days. If you do not have a bowel movement for 3 days, call your doctor or health residential child care counselor. Too much acetaminophen can be very dangerous. Do not take Tylenol (acetaminophen) or medicines that contain acetaminophen with this medicine. Many non-prescription medicines contain acetaminophen. Always read the labels carefully. You have been given the following additional information: Kidney Stone W/ Colic Hydrocodone Bitartrate, Acetaminophen Oral tablet (Electronically signed by Yamilet Biswas P.A.-C 10/21/2016 22:52)
--- NOTE | 2016-10-21 23:03 | ED DISCHARGE INSTRUCTIONS ---
Patient: VAN SAMANIEGO General Instructions [facility] VisitID: [id number] [address] [place] [address] 70y, F Registration Date/Time: 10/21/2016 Left nephrolithiasis with renal colic. Diabetes. Hypertension. INSTRUCTIONS Drink plenty of fluids. (Urology: [phone]). Prescription Medications: Hydrocodone/APAP 5mg / 325mg: take 1 orally every 6 hours as needed for pain. Dispense twelve (12). No refill. Follow-up: Follow up with your doctor in three days. ADDITIONAL INFORMATION Kidney Stone (W/ Colic) The sharp cramping pain and nausea/vomiting that you have is due to a small stone which has formed in the kidney and is now passing down a narrow tube (ureter) on its way to your bladder. Once it reaches your bladder, the pain will stop. The stone may pass in your urine stream in one piece. [The size may be 1/16" to 1/4" (1-6mm)]. Or, the stone may also break up into christianne fragments which you may not even notice. Once you have had a kidney stone, you are at risk for developing another one in the future. Home Care: Drink plenty of fluids (at least 8 to 10 glasses of water a day). Most stones will pass on their own, but may take from a few hours to a few days. Sometimes the stone is too large to pass by itself and special methods will have to be used to remove the stone. Each time you urinate, do so in a jar. Pour the urine from the jar through the strainer and into the toilet. Continue doing this until 24 hours after your pain stops. By then, if there was a kidney stone, it should pass from your bladder. Some stones dissolve into sand-like particles and pass right through the strainer. In that case, you wont ever see a stone. Save any stone that you find in the strainer and bring it to your doctor for analysis. It may be possible to prevent certain types of stones from forming. Therefore, it is important to know what kind of stone you have. Try to stay as active as possible since this will help the stone pass. Do not stay in bed unless your pain prevents you from getting up. You may notice a red, pink or brown color to your urine. This is normal while passing a kidney stone. Follow Up with your doctor or return to this facility if the pain lasts more than 48 hours. Get Prompt Medical Attention if any of the following occur: Pain that is not controlled by the medicine given Repeated vomiting or unable to keep down fluids Weakness, dizziness or fainting Fever of 100.4F (38C) or higher, or as directed by your healthcare provider Passage of solid red or brown urine (can't see through it) or urine with lots of blood clots Unable to pass urine for 8 hours and increasing bladder pressure Hydrocodone Bitartrate, Acetaminophen Oral tablet What is this medicine? ACETAMINOPHEN; HYDROCODONE (a set a RYLAN rachel fen; christina droe KOE done) is a pain reliever. It is used to treat mild to moderate pain. How should I use this medicine? Take this medicine by mouth. Swallow it with a full glass of water. Follow the directions on the prescription label. If the medicine upsets your stomach, take the medicine with food or milk. Do not take more than you are told to take. Talk to your electrical integrator regarding the use of this medicine in children. This medicine is not approved for use in children. What side effects may I notice from receiving this medicine? Side effects that you should report to your doctor or health health care analyst as soon as possible: allergic reactions like skin rash, itching or hives, swelling of the face, lips, or tongue breathing problems confusion feeling faint or lightheaded, falls stomach pain yellowing of the eyes or skin Side effects that usually do not require medical attention (report to your doctor or health health care analyst if they continue or are bothersome): nausea, vomiting stomach upset What may interact with this medicine? alcohol antihistamines isoniazid medicines for depression, anxiety, or psychotic disturbances medicines for sleep muscle relaxants naltrexone narcotic medicines (opiates) for pain phenobarbital ritonavir tramadol What if I miss a dose? If you miss a dose, take it as soon as you can. If it is almost time for your next dose, take only that dose. Do not take double or extra doses. Where should I keep my medicine? Keep out of the reach of children. This medicine can be abused. Keep your medicine in a safe place to protect it from theft. Do not share this medicine with anyone. Selling or giving away this medicine is dangerous and against the law. Store at room temperature between 15 and 30 degrees C (59 and 86 degrees F). Protect from light. Keep container tightly closed. Throw away any unused medicine after the expiration date. Discard unused medicine and used packaging carefully. Pets and children can be harmed if they find used or lost packages. What should I tell my health care provider before I take this medicine? They need to know if you have any of these conditions: brain tumor Crohn's disease, inflammatory bowel disease, or ulcerative colitis drink more than 3 alcohol-containing drinks per day drug abuse or addiction head injury heart or circulation problems kidney disease or problems going to the bathroom liver disease lung disease, asthma, or breathing problems an unusual or allergic reaction to acetaminophen, hydrocodone, other opioid analgesics, other medicines, foods, dyes, or preservatives or trying to get breast-feeding What should I watch for while using this medicine? Tell your doctor or health health care analyst if your pain does not go away, if it gets worse, or if you have new or a different type of pain. You may develop tolerance to the medicine. Tolerance means that you will need a higher dose of the medicine for pain relief. Tolerance is normal and is expected if you take the medicine for a long time. Do not suddenly stop taking your medicine because you may develop a severe reaction. Your body becomes used to the medicine. This does NOT mean you are addicted. Addiction is a behavior related to getting and using a drug for a non-medical reason. If you have pain, you have a medical reason to take pain medicine. Your doctor will tell you how much medicine to take. If your doctor wants you to stop the medicine, the dose will be slowly lowered over time to avoid any side effects. You may get drowsy or dizzy when you first start taking the medicine or change doses. Do not drive, use machinery, or do anything that may be dangerous until you know how the medicine affects you. Stand or sit up slowly. There are different types of narcotic medicines (opiates) for pain. If you take more than one type at the same time, you may have more side effects. Give your health care provider a list of all medicines you use. Your doctor will tell you how much medicine to take. Do not take more medicine than directed. Call emergency for help if you have problems breathing. The medicine will cause constipation. Try to have a bowel movement at least every 2 to 3 days. If you do not have a bowel movement for 3 days, call your doctor or health health care analyst. Too much acetaminophen can be very dangerous. Do not take Tylenol (acetaminophen) or medicines that contain acetaminophen with this medicine. Many non-prescription medicines contain acetaminophen. Always read the labels carefully. You have been given the following additional information: Kidney Stone W/ Colic Hydrocodone Bitartrate, Acetaminophen Oral tablet (Electronically signed by Yamilet Biswas P.A.-C 10/21/2016 22:52)
== END 2016-10-21 22:58 | disposition home or self-care (01) ==
LOC: ED SRH 19:40
DX: N20.0 Calculus of kidney (principal); N23 Unspecified renal colic; E11.9 Type 2 diabetes mellitus without complications; I10 Essential (primary) hypertension; Z79.899 Other long term (current) drug therapy; Z79.84 Long term (current) use of oral hypoglycemic drugs; Z88.2 Allergy status to sulfonamides; Z88.0 Allergy status to penicillin; Z88.8 Allergy status to other drugs, medicaments and biological substances
CPT/HCPCS: 90004; 90100; 92235; 95059